=== PATIENT | male | born 1965 | race African-American/Black ===

== ENCOUNTER 2024-02-15 17:24 | Emergency (ER) | payer MEDICAID ==
[~2024-02-15] VITALS: Ht 170.2 cm; Wt 81.6 kg
[2024-02-15] MEDS ORDERED: PRO20 PO (17:27)
[2024-02-15] MEDS ORDERED: LURA20TA PO (17:27)
[2024-02-15] MEDS ORDERED: PHEN100C4 PO ×2 (17:27→17:44)
[2024-02-15 17:28] VITALS: BP_SYST 140; PULSE 78; RESP 16; TEMP 97; O2SAT 97
[2024-02-15] MEDS ORDERED: PRO10 PO (17:44)
[2024-02-15] MEDS ORDERED: LURA40TA2 PO (17:44)
== END 2024-02-15 17:52 | disposition home or self-care (01) ==
LOC: SED 17:24
DX: G40.909 Epilepsy, unspecified, not intractable, without status epilepticus (principal); Z76.0 Encounter for issue of repeat prescription; F31.9 Bipolar disorder, unspecified; Z79.899 Other long term (current) drug therapy; Z79.2 Long term (current) use of antibiotics
CPT/HCPCS: 99281

== ENCOUNTER 2024-02-18 10:57 | Emergency (ER) | payer MEDICAID ==
[~2024-02-18] VITALS: Ht 170.2 cm; Wt 81.6 kg
[~2024-02-18 10:57] MED LIST: LURA20TA PO; LURA40TA2 PO; PHEN100C4 PO; PRO10 PO; PRO20 PO
[2024-02-18 11:08] VITALS: BP_SYST 140; PULSE 66; RESP 16; TEMP 97.3; O2SAT 100
[2024-02-18] MEDS ORDERED: CLON0.2T PO (13:21)
[2024-02-18 13:26] VITALS: BP_SYST 140; PULSE 66; RESP 16; TEMP 97.3; O2SAT 100
== END 2024-02-18 13:26 | disposition home or self-care (01) ==
LOC: SED 10:57
DX: I10 Essential (primary) hypertension (principal); Z76.0 Encounter for issue of repeat prescription; F31.9 Bipolar disorder, unspecified; F20.9 Schizophrenia, unspecified; Z79.899 Other long term (current) drug therapy; Z79.2 Long term (current) use of antibiotics
CPT/HCPCS: 99283